=== PATIENT | female | born 1995 | race Two or more races ===

== ENCOUNTER 2021-10-31 15:37 | Emergency (ER) | payer MEDICAID ==
[~2021-10-31] VITALS: Ht 162.6 cm; Wt 56.7 kg
[2021-10-31 15:50] VITALS: BP 112/80
[2021-10-31] MEDS ORDERED: ACETAMINOPHEN 325 MG TAB PO ONE (16:45)
[2021-10-31] MEDS ORDERED: IBUP800T27 PO (19:24)
[2021-10-31] MEDS ORDERED: HYDR-4902 PO (19:24)
== END 2021-10-31 19:55 | disposition home or self-care (01) ==
LOC: EDBD 15:37 → ER 15:37
DX: S80.01XA Contusion of right knee, initial encounter (principal); J45.909 Unspecified asthma, uncomplicated; V86.69XA Passenger of other special all-terrain or other off-road motor vehicle injured in nontraffic accident, initial encounter; Y93.89 Activity, other specified; Y92.89 Other specified places as the place of occurrence of the external cause; Y99.8 Other external cause status
CPT/HCPCS: 73564